=== PATIENT | female | born 1985 | race Caucasian/White ===

== ENCOUNTER 2018-06-26 12:16 | Day surgery (SDC) | payer BC ==
[2018-06-23 17:00] LABS: Urine Appearance CLOUDY; Urine Bilirubin NEGATIVE (NEG); Urine Blood 3+ (NEG); Urine Color YELLOW; Urine Glucose NEGATIVE (NEG); Urine Protein NEGATIVE (NEG); Urine Specific Gravity 1.025 (1.005-1.030)
[2018-06-23 17:02] LABS: Absolute Lymphocytes (CBC) 2.8 K/uL (0.7-4.9); Absolute Monocytes 0.5 K/uL (0.1-1.3); Absolute Neutrophil 7.4 K/uL (1.8-8.0); Basophils % 0.4 % (0-1.3); Eosinophils % 0.2 % (0-4.4); Hematocrit 40.3 % (36.0-45.0); Lymphocytes % 26.1 % (15.3-44.8); MPV 8.4 fL (7.6-11.3); Monocytes % 4.8 % (3.3-12.3); RBC Red Blood Cell Count 4.36 M/uL (3.86-4.86)
[2018-06-23 17:17] LABS: Urine Microscopic Reflex ORDER UMIC
[2018-06-23 17:26] LABS: Urine Bacteria <20 /HPF (<20); Urine Culture Reflex Order REFLEXED; Urine Mucus 2+ /HPF (NONE SEEN); Urine RBC 20-50 /HPF (NONE SEEN)
[2018-06-26] MEDS ORDERED: CEFAZOLIN/SWI 1gm 2 GM/20 ML SYR ONE (13:10)
[2018-06-26] MEDS ORDERED: Ringers Lactate 1,000 ML IV ONE (13:10)
[2018-06-26] MEDS ORDERED: LIDOCAINE 2% MPF 5 ML VIAL ONE (13:40)
[2018-06-26] MEDS ORDERED: MIDAZOLAM HCL 2 MG/2 ML INJ ONE (13:40)
[2018-06-26] MEDS ORDERED: PROPOFOL 200 MG/20 ML VIAL IV ONE (13:40)
[2018-06-26] MEDS ORDERED: FENTANYL CITR 100 MCG/2 ML ONE ×2 (13:40→14:43)
[2018-06-26] MEDS ORDERED: ROCURONIUM 50 MG/5 ML VIAL IV ONE (13:45)
[2018-06-26] MEDS ORDERED: ONDANSETRON 4 MG/2 ML VIAL ONE (13:45)
[2018-06-26] MEDS ORDERED: NA CHLORIDE 0.9% 1,000 ML ONE (14:10)
[2018-06-26] MEDS ORDERED: SCOPOLAMINE HYDROBROMIDE PATCH TD ONE (14:15)
[2018-06-26] MEDS ORDERED: EPHEDRINE SULF 50 MG/10 ML SYR ONE (14:36)
[2018-06-26] MEDS ORDERED: GLYCOPYRROLATE 0.2 MG/ML SYR ONE ×2 (14:39)
[2018-06-26] MEDS ORDERED: DEXAMETHASONE 4 MG/ML VIAL ONE (14:41)
[2018-06-26] MEDS ORDERED: NEOSTIGMINE 1 MG/ML -10 ML VIAL ONE (14:42)
[2018-06-26] MEDS ORDERED: Ringers Lactate 1,000 ML IV SCH (15:00)
[2018-06-26] MEDS ORDERED: KETOROLAC 30 MG/ML INJ ONE (15:19)
[2018-06-26] MEDS: MEPERIDINE HCL 50 MG/ML AMP ONE ×4 (15:53→16:08)
[2018-06-26] MEDS ORDERED: MEPERIDINE HCL 25 MG/0.5 ML ONE (16:22)
[2018-06-26] MEDS ORDERED: IBUPROFEN 200 MG TAB PO ONE (17:04)
[2018-06-26] MEDS ORDERED: ONDANSETRON 4 MG (ODT) TAB ONE (17:04)
[2018-06-26] MEDS ORDERED: IBUPROFEN 400 MG TAB ONE (17:04)
--- NOTE | 2018-06-27 02:14 | OP ---
Date of Procedure: 06/26/2018 Surgeon: Katie Moscoso MD [employer] Hand: Jodrana Pritchett. Preoperative Diagnoses: 1.Irregular menstrual periods. 2.Pelvic pain. 3.Deep dyspareunia. 4.Dysmenorrhea. Postoperative Diagnoses: 1.Irregular menstrual periods. 2.Pelvic pain. 3.Deep dyspareunia. 4.Dysmenorrhea. 5.Left hydrosalpinx. Procedures Performed: 1.Diagnostic hysteroscopy. 2.Diagnostic laparoscopy. 3.Peritoneal biopsy on the right uterosacral ligament. 4.Left salpingo-ovariolysis. 5.Left salpingectomy. Anesthesia: General endotracheal. Estimated Blood Loss: Minimal. Specimens: Peritoneal biopsy of the right uterosacral, left tube. Complications: None. Drains: None. Condition: Stable. Findings: The inside of the uterine cavity was unremarkable. The both tubal ostia were visualized. On laparoscopy, there was a left hydrosalpinx, and there were left tubo-ovarian adhesions to each ot her and to the sidewall. The appendix was normal. The rest of the abdominal organs inspected normal . In the peritoneum, especially in the posterior cul-de-sac, there was a tiny knot and then on both denise rosacral ligaments, there were areas that were slightly more congested with calcifications on them. This was also the case on the fundus of the uterus. Most likely these are secondary to inflammation, unsure if there is an active infection, which is unlikely. However, they were not consistent with i mplants of endometriosis. Despite that, I did a biopsy of the peritoneum on the right uterosacral li gament where these calcifications were seen and this was sent for permanent pathology. The right tub e was normal. Despite interruption, did not see any benefit in removing it, so it was not. The left tube was removed. The ovary on the left side was covered with adhesions that were dense and these w ere all removed and the ovary was freed up. Brief History And Physical: The patient is a 33-year-old with 2, para 2, vaginal deliveries, tubal, managed with oral contraceptives, Depo in the past. Pain has not been relieved and progressi vely worse, so she had seen me and I evaluated her and after offering all different options, she cons ented for surgery. So, she never had a diagnostic hysteroscopy or laparoscopy, so plan was to do aidan t, diagnose her, and the problems at that time if endometriosis found by removal. If not, possibility of removal of tubes was explained to the patient and the patient was consented donaia hilario. If this was not the case and she has not improved, then further surgical planning would be at the end of the bleeding. Description Of Procedure: After informed consent was verified, the patient was taken back to the OR, placed in a supine fashion on the operating table. General anesthesia was given, placed in a dorsal lithotomy position. Arms were tucked by the side. No antibiotics were given. Time-out was done. Abdomen, vulva, vagina, and perineum were prepped and draped in a sterile fashion. Martínez was placed to drain the bladder. The speculum was used to expose the cervix. Anterior lip was grasped with an Allis clamp. Diagnostic SlimLine hysteroscope was introduced through the cervical canal into the denise rine cavity, unremarkable. Both tubal ostia were seen and the cavity appeared to be single without a ny anomalies. The scope was removed. Diagnostic VCare was placed. Martínez was placed and this was al l draped. A 1 cm infraumbilical incision was made with a scalpel using the open laparoscopy technique. Fascia was incised, tagged. The peritoneum was entered bluntly and Burt was placed with S retractors. Up per abdominal surfaces, organs, and lower abdominal surfaces were grossly visualized and were mostly normal. The 5 mm left lower quadrant suprapubic ports were placed under direct vision. Then, I looked inside the peritoneal cavity. On close inspection, the findings were as above. There were areas of calcif ic inflammation, erythema, and inflammation and calcifications. . No sign of endometriosi s, however, in 1 area of these calcifications. I removed the entire peritoneum for biopsy as well ju st in case if there was endometriosis and she may need another surgery or any other treatment method. The left tube was swollen and so this was taken down with the help of the bipolar medium tip and cut with monopolar scissors. The tubal and ovarian adhesions were removed from each other. The 2 ovaria n adhesions were taken down to the lateral wall. On the right side, the tube and ovary were free and normal. There was sign of interruption, but no evidence of any hydrosalpinx. There was no benefit in removing it. The appendix was normal and after all the procedures were done, the peritoneal biops y was taken with the help of the scissors with monopolar cautery. This was away from the ureter, med ial and superior to it. This was sent to permanent pathology. All the trocars were removed. Gas wa s desufflated. After thorough irrigation and suction, the Burt was removed as well. Fascia was cl osed with 0 Vicryl in [id number] fashion. All skin incisions were closed with the help of 4-0 V icryl sutures. Martínez and VCare were removed. The patient was recovered in the OR and taken to PACU in stable condition. She will follow up with me in 1 week. NURY Voice ID: [id number] Report ID: [id number]
== END 2018-06-26 17:51 | disposition home or self-care (01) ==
LOC: OR 12:16
PROVIDERS: ATTEND Obstetrics & Gynecology
PROC: 0WBF4ZX Excision of Abdominal Wall, Percutaneous Endoscopic Approach, Diagnostic (ICD-10-PCS; 2018-06-26)
PROC: 0UT64ZZ Resection of Left Fallopian Tube, Percutaneous Endoscopic Approach (ICD-10-PCS; principal; 2018-06-26 13:30)
DX: N92.6 Irregular menstruation, unspecified (principal); N94.12 Deep dyspareunia; N94.6 Dysmenorrhea, unspecified; R10.2 Pelvic and perineal pain; N73.6 Female pelvic peritoneal adhesions (postinfective)
CPT/HCPCS: 36415; 81003; 81015; 81025; 85025; 86850; 86900; 86901; 87086; 87088; 88305; J0690; J2175; J2250; J2405; J2704; J2710; J3010; J7030